=== PATIENT | male | born 1975 | race Two or more races ===

== ENCOUNTER 2018-03-22 08:05 | Day surgery (SDC) | payer OTHER | END 2018-03-22 13:45 | disposition home or self-care (01) | LOC: AMB-ENDOS 08:05 | DX: K57.32 Diverticulitis of large intestine without perforation or abscess without bleeding (principal); K64.0 First degree hemorrhoids ==

== ENCOUNTER 2021-12-05 09:23 | Day surgery (SDC) | payer OTHER | END 2021-12-05 16:30 | disposition home or self-care (01) | LOC: CIR.AMB 09:23 | PROVIDERS: ATTEND Orthopaedic Surgery | DX: S46.212A Strain of muscle, fascia and tendon of other parts of biceps, left arm, initial encounter (principal); Z20.822 Contact with and (suspected) exposure to COVID-19; Z91.013 Allergy to seafood ==